=== PATIENT | male | born 1960 | race Caucasian/White ===

== ENCOUNTER → 2017-01-15 | Outpatient (CLI) | payer BC ==
[~2017-01-15] VITALS: Ht 180.3 cm; Wt 80.3 kg
[~2017-01-15] MED LIST: LR 1,000 ML IV SCH; no medications
--- NOTE | 2017-01-15 08:13 | ROOR ---
Patient Name: Max Salas Procedure Date: 01/15/2017 7:25 AM Date of : 1960 Age: 56 Room: [facility] Gender: Male Note Status: Finalized Procedure: Colonoscopy Indications: Screening for colorectal malignant neoplasm, This is the patient's first colonoscopy Providers: Rick Mcelroy MD Referring MD: Drake Kaur MD Requesting Provider: Medicines: Monitored Anesthesia Care Complications: No immediate complications. Procedure: Pre-Anesthesia Assessment: - Prior to the procedure, a History and Physical was performed, and patient medications and allergies were reviewed. The patient is competent. The risks and benefits of the procedure and the sedation options and risks were discussed with the patient. All questions were answered and informed consent was obtained. Patient identification and proposed procedure were verified by the physician, the nurse and the anesthesiologist in the procedure room. Mental Status Examination: alert and oriented. Airway Examination: normal oropharyngeal airway and neck mobility. CV Examination: regular rate and rhythm. Prophylactic Antibiotics: The patient does not require prophylactic antibiotics. Prior Anticoagulants: The patient has taken no previous anticoagulant or antiplatelet agents. ASA Grade Assessment: I - A normal, healthy patient. After reviewing the risks and benefits, the patient was deemed in satisfactory condition to undergo the procedure. The anesthesia plan was to use monitored anesthesia care (MAC). Immediately prior to administration of medications, the patient was re-assessed for adequacy to receive sedatives. The heart rate, respiratory rate, oxygen saturations, blood pressure, adequacy of pulmonary ventilation, and response to care were monitored throughout the procedure. The physical status of the patient was re-assessed after the procedure. The Colonoscope was introduced through the anus and advanced to the cecum, identified by appendiceal orifice and ileocecal valve. The colonoscopy was performed without difficulty. The patient tolerated the procedure well. The quality of the bowel preparation was excellent. Findings: The perianal and digital rectal examinations were normal. Two sessile polyps were found at 70 cm proximal to the anus. The polyps were 4 to 6 mm in size. These polyps were removed with a hot snare. Resection and retrieval were complete. A few medium-mouthed diverticula were found in the sigmoid colon. There was some thickening and mild narrowing noted in the sigmoid colon in the area of his diverticulosis. A 8 mm polyp was found in the rectum. The polyp was semi-pedunculated. The polyp was removed with a hot snare. Resection and retrieval were complete. Impression: - Two 4 to 6 mm polyps at 70 cm proximal to the anus, removed with a hot snare. Resected and retrieved. - Diverticulosis in the sigmoid colon. - One 8 mm polyp in the rectum, removed with a hot snare. Resected and retrieved. Recommendation: - Resume previous diet. - Await pathology results. - Telephone endoscopist for pathology results in 10 days. Rick Mcelroy MD 01/15/2017 8:12:01 AM Number of Addenda: 0 Note Initiated On: 01/15/2017 7:25 AM Estimated Blood Loss: Estimated blood loss: none.
[2017-01-15 08:35] VITALS: BP 152/94
== END | disposition home or self-care (01) ==
LOC: M OPP 06:41
PROVIDERS: ATTEND Surgery
DX: Z12.11 Encounter for screening for malignant neoplasm of colon (principal); D12.4 Benign neoplasm of descending colon; K57.30 Diverticulosis of large intestine without perforation or abscess without bleeding; D12.8 Benign neoplasm of rectum; E78.00 Pure hypercholesterolemia, unspecified; Z87.891 Personal history of nicotine dependence

== ENCOUNTER 2020-06-24 05:26 | Emergency (ER) | payer BC ==
[~2020-06-24] VITALS: Ht 180.3 cm; Wt 81.8 kg
[~2020-06-24 05:26] MED LIST changes: -LR 1,000 ML IV SCH
[2020-06-24] MEDS ORDERED: ONDANSETRON 4MG/2ML VIAL IV ONE (06:15)
[2020-06-24 06:35] LABS: BASO # 0.1 10^3/uL (0.0-0.2); BASO % 0.5 % (0.0-1.0); EOS % 0.3 % (0.0-3.0); HEMATOCRIT 42.4 % (42.0-52.0); HEMOGLOBIN 14.4 g/dl (13.5-17.5); LYMPH # 1.4 10^3/uL (1.5-5.0); MEAN CORPUSCULAR VOLUME 85.5 fl (80.0-96.0); MONO # 0.7 10^3/uL (0.0-0.8); MONO % 6.5 % (0.0-5.0); NEUTROPHILS # 8.2 10^3/uL (1.5-8.5); NEUTROPHILS % 79.2 % (36.0-66.0); PLATELET COUNT, AUTOMATED 253 10^3/uL (150-450); RED BLOOD COUNT 4.96 10^6/uL (4.30-6.10); WHITE BLOOD COUNT 10.4 10^3/uL (4.0-10.0)
[2020-06-24] MEDS: MORPHINE 4 MG/ML 1ML VIAL/SYRINGE (J2270) IV PRN ×2 (06:42→08:33)
[2020-06-24] MEDS ORDERED: ISOVUE-370 76% 100ML VIAL As Ordered ONE (06:42)
[2020-06-24 07:11] LABS: ALBUMIN 3.4 GM/DL (3.2-5.2); BILIRUBIN,DIRECT 0.2 MG/DL (0.0-0.2); BILIRUBIN,TOTAL 0.5 MG/DL (0.2-1.0); TOTAL PROTEIN 7.2 GM/DL (6.4-8.2)
--- NOTE | 2020-06-24 07:35 | REPVR ---
PROCEDURE INFORMATION: Exam: CT Abdomen And Pelvis With Contrast Exam date and time: 06/24/2020 6:10 AM Age: 60 years old Clinical indication: Abdominal pain; Localized; Lower; Additional info: Generalized abd pain, HX of diverticulitis TECHNIQUE: Imaging protocol: Computed tomography of the abdomen and pelvis with intravenous contrast. Radiation optimization: All CT scans at this facility use at least one of these dose optimization techniques: automated exposure control; mA and/or kV adjustment per patient size (includes targeted exams where dose is matched to clinical indication); or iterative reconstruction. Contrast material: ISO; Contrast volume: 100 ml; Contrast route: INTRAVENOUS (IV); COMPARISON: CT ABD PELVIS WITH CONTRAST 10/26/2016 7:50 AM FINDINGS: Liver: Normal. No mass. Gallbladder and bile ducts: Normal. No calcified stones. No ductal dilation. Pancreas: Normal. No ductal dilation. Spleen: Normal. No splenomegaly. Adrenals: Normal. No mass. Kidneys and ureters: Cyst left kidney measures 1.5 cm. Stomach and bowel: Fluid-filled small bowel left upper quadrant. Distal colonic diverticulosis. Long segment of abnormal wall thickening and Jud luminal stranding involving sigmoid colon and rectosigmoid junction. There is prominent low pelvic soft tissue infectious or inflammatory stranding and multi locular enhancing fluid collections suspicious for abscess overall measuring approximately 7.4 by 4.8 by 2.0 cm. Appendix: No evidence of appendicitis. Intraperitoneal space: Unremarkable. No free air. No significant fluid collection. Vasculature: Calcified abdominal aorta. Lymph nodes: Unremarkable. No enlarged lymph nodes. Bladder: Unremarkable as visualized. Reproductive: Unremarkable as visualized. Bones/joints: Unremarkable. No acute fracture. Soft tissues: See "Stomach and bowel" finding. IMPRESSION: 1. Significant wall thickening long segment of sigmoid colon and rectosigmoid junction with prominent low pelvic stranding and pelvic abscess. The differential could include complicated diverticulitis. Other considerations including infectious or inflammatory colitis. 2. Colonic diverticulosis. 3. Reactive small bowel ileus. 4. Left renal cyst.No further workup recommended. Electronically signed by: Ashwini Osei On 06/24/2020 07:36:10 AM
[2020-06-24] MEDS ORDERED: PIPERACILLIN/TAZOBACTAM SOD 4.5 GM in D5W MINI-BAG PLUS 50 ML IV ONE (08:00)
[2020-06-24] MEDS ORDERED: NS 1,000 ML IV SCH (08:15)
[2020-06-24] MEDS ORDERED: HYDROMORPHONE HCL 0.5 MG/ 0.5 ML SYRINGE (J1170 PER 1) IV PRN (09:00)
[2020-06-24] MEDS ORDERED: FLAG500T PO (10:06)
[2020-06-24] MEDS ORDERED: CIPR-249 PO (10:06)
[2020-06-24] MEDS ORDERED: PERC5TAB12 PO (10:07)
[2020-06-24 10:21] VITALS: BP 120/68
--- NOTE | 2020-07-06 14:28 | CR ---
DATE: 06/24/2020 REASON FOR CONSULTATION: Diverticulitis with possible pelvic abscess. HISTORY OF PRESENT ILLNESS: The patient is a pleasant 60-year-old man who presented to the Emergency Department in the bull chain operator of the 24 of June complaining of severe abdominal pain. The patient has a history of an episode of sigmoid diverticulitis in late 2015. He had a follow-up colonoscopy at that point, that confirmed diverticulosis. The colonoscopy confirmed diverticulosis in the sigmoid colon and he was also found to have three small polyps, that were resected and proved to be adenomas. Patient reports that one week ago he noted the onset of some discomfort in his left lower quadrant. He described it as a mild achy or cramping sensation. He adjusted his diet to primarily liquids and avoided any fibrous foods. He felt as if he was getting generally better with just the dietary modification. He denied any fevers or chills. He has had no rectal bleeding. He denies any diarrhea or constipation. On the evening of the , he noted some slightly increased discomfort across the lower abdomen. In the bull chain operator at about 5:00 in the morning, he noted severe pain in his pelvic area and lower abdomen. He described discomfort more diffusely in the abdomen. He felt an urge to defecate, but did not have a bowel movement. He presented to the Emergency Department, where he underwent evaluation with some laboratory studies and he had a CT scan of the abdomen and pelvis. This showed inflammatory changes in the sigmoid colon as well as several small fluid collections in the pelvis. I am now consulted regarding the patient to determine if either drainage or hospitalization are needed. MEDICATIONS: Patient is currently on no prescription medications. ALLERGIES: He denies any known drug allergies. MEDICAL HISTORY: Significant only for his past diverticulitis and cervical disc disease. SURGICAL HISTORY: He has had surgery for cervical spine disease approximately 15 years ago and has done well. He has had no abdominal surgery at all. SOCIAL HISTORY: He is a light smoker of tobacco products. He denies any excess alcohol intake. REVIEW OF SYSTEMS: Patient denies any history of seizure or stroke. He has had no chest pain, palpitations or cardiac issues. He denies any shortness of breath, cough or wheezing. His GI review is noted in the history of the present illness. He denies any dysuria or hematuria. He denies any bone or joint problems. He has had no history of DVT or pulmonary embolus. PHYSICAL EXAMINATION: GENERAL: Patient is sitting up on the side of the stretcher at the time of my visit. He is alert and oriented. He appears fairly comfortable at present, though still complains of some crampy pain. He feels better currently sitting up. VITALS: Temperature 97.3 at the time of presentation, pulse has been in the 80s generally with a normal room air oxygen saturation, and blood pressure upon presentation 129/73. SKIN: Warm and dry. HEENT: Sclerae anicteric. Mucous membranes appear moist. NECK: Supple without mass or bruit. HEART: Regular rate and rhythm. LUNGS: Clear bilaterally to auscultation. ABDOMEN: Perhaps mildly protuberant. He has bowel sounds present. There is no evident hernia. There is no tympany to percussion. There is no significant tenderness to percussion throughout the abdomen. On palpation, the abdomen is soft throughout. He has no significant tenderness to palpation, although perhaps in the suprapubic area and low left lower quadrant there is some mild tenderness to palpation. EXTREMITIES: Benign. LABORATORY STUDIES: Include CBC that showed white count 10, hemoglobin 14, hematocrit 42, platelet count 253,000. Differential count showed 79% neutrophils, 13% lymphocytes and 6% monocytes. Chemistry profile showed normal electrolytes. Liver function tests entirely normal with lipase 127. Urinalysis showed an elevated specific gravity at greater than 1.060 with 1+ protein, 1+ blood and the microscopic showed 12 red cells and 1 white cell per high power field. He had a blood culture obtained, which is of course pending. IMAGING DATA: He had a CT scan of the abdomen and pelvis. This was read by the radiologist as showing a long segment of abnormal wall thickening and periluminal stranding involving the sigmoid colon and rectosigmoid. There was some prominent low pelvic soft tissue infectious or inflammatory stranding and multi-locular enhancing fluid collections. I reviewed the imaging personally in detail and compared this to a CT scan he had from October 2016. He certainly has a picture consistent with diverticulitis involving his sigmoid colon. The length of colon involved now is somewhat greater than in 2016. He does have some small fluid collections low in the pelvis. I do not believe that these are all confluent. There is no air identified in any of these pockets of fluid. He has no free air otherwise in the abdomen and no other fluid collections outside the pelvis. IMPRESSION: Sigmoid diverticulitis with small pelvic fluid collections. RECOMMENDATIONS: At this point, the patient clearly has diverticulitis. The small fluid collections do not appear to require drainage at this time. In fact, I think it would be very difficult to achieve percutaneous drain placement for these. These are all quite low in the pelvis and probably a posterior approach would be needed and I think the likelihood of successful drainage would be fairly low and at a great risk of discomfort. I think he may be better served by admission to the hospital for intravenous antibiotics given the degree of discomfort he had that lead to his coming to the Emergency Department. He has required some Dilaudid in the Emergency Department for pain control, although he does say he feels much better now. We discussed the option of coming in for I.V. antibiotics versus discharge home. He reports that he would be very willing to continue the antibiotics on an oral basis at home. He seems responsible and I believe that there is a very low risk for problems if he is discharged on oral antibiotics rather than coming into the hospital. After some discussion, we agreed that he could be discharged home on oral antibiotics and oral analgesics as necessary. I advised him that he should feel significantly better within the next 48 hours or so. If he gets worse or does not see improvement within 48 hours, he should follow-up for reevaluation. If his symptoms do not remit fairly readily with antibiotics, then a repeat CT scan may well be required to reassess his pelvic fluid collections. My suspicion is that these are just some inflammatory fluid and not true abscesses and that these will resolve with just antibiotic therapy. I advised him that I would be power plant operations manager through this coming weekend and he could return to the Emergency Department as needed and I can be available to see him. I spoke with Dr. Funk of the Emergency Department and she will provide the patient with antibiotics and oral analgesics and discharge him. WILTON
== END 2020-06-24 10:25 | disposition home or self-care (01) ==
LOC: M ED 05:26
DX: K57.92 Diverticulitis of intestine, part unspecified, without perforation or abscess without bleeding (principal)
CPT/HCPCS: 74177; 80047; 80076; 81001; 83605; 83690; 85025; 87040; 93041; 96365; 96375; 96376; 99284; J1170; J2270; J2405; J2543; Q9967

== ENCOUNTER → 2020-07-05 | Outpatient (CLI) | payer BC ==
[~2020-07-05] MED LIST changes: +CIPR-249 PO; +FLAG500T PO; +GASTROGRAFIN SOLUTION 30ML (Q9963) As Ordered ONE; +ISOVUE-370 76% 100ML VIAL As Ordered ONE; +PERC5TAB12 PO
--- NOTE | 2020-08-01 11:57 | REP ---
PELVIC CT WITH CONTRAST CLINICAL: Follow up diverticulitis. TECHNIQUE: Axial contrast enhanced images of the pelvis using oral (per protocol) and 100 cc [id number] intravenous contrast material. COMPARISON: 06/24/2020 FINDINGS: Diverticulitis involving the mid to distal sigmoid colon extending to the level of the rectosigmoid with significant surrounding inflammatory stranding, very subtle small pockets of possible extraluminal gas, and irregular enhancing fluid collections suggesting phlegmonous changes and forming abscess are again noted and relatively similar to prior examination. Findings do not suggest significant improvement. Remainder of the visualized small and large is grossly unremarkable. The bladder and prostate gland are relatively unremarkable, although phlegmonous changes from the diverticulitis abut the bladder and superior margin of the prostate gland making secondary inflammatory changes to these structures possible. Visualized abdominal aorta and vasculature demonstrate atherosclerotic changes. Surrounding musculoskeletal structures demonstrate age-related changes without acute osseous abnormality. IMPRESSION: Continued marked sigmoid diverticulitis with surrounding inflammatory changes and phlegmonous changes which are partly inseparable from the bladder and prostate gland in the deep pelvis. Small foci of continued extraluminal gas cannot be excluded. These findings are relatively similar to prior examination and without evidence for improvement. MTDD
== END ==
LOC: M RAD 10:51
PROVIDERS: ATTEND Surgery
DX: K57.20 Diverticulitis of large intestine with perforation and abscess without bleeding (principal)
CPT/HCPCS: 72193; Q9963; Q9967

== ENCOUNTER → 2020-07-07 | Outpatient (REF) | payer BC ==
[~2020-07-07] MED LIST changes: -GASTROGRAFIN SOLUTION 30ML (Q9963) As Ordered ONE; -ISOVUE-370 76% 100ML VIAL As Ordered ONE
[2020-07-07 05:24] LABS: BASO # 0.1 10^3/uL (0.0-0.2); BASO % 1.2 % (0.0-1.0); EOS # 0.1 10^3/uL (0.0-0.5); EOS % 1.5 % (0.0-3.0); HEMATOCRIT 42.1 % (42.0-52.0); HEMOGLOBIN 13.6 g/dl (13.5-17.5); LYMPH % 22.8 % (24.0-44.0); MEAN CORPUSCULAR HEMOGLOBIN 28.2 pg (27.0-33.0); MEAN CORPUSCULAR HGB CONC 32.3 g/dl (32.0-36.5); MEAN CORPUSCULAR VOLUME 87.3 fl (80.0-96.0); MONO # 0.5 10^3/uL (0.0-0.8); MONO % 6.1 % (0.0-5.0); NEUTROPHILS % 67.8 % (36.0-66.0); PLATELET COUNT, AUTOMATED 394 10^3/uL (150-450); RED BLOOD COUNT 4.82 10^6/uL (4.30-6.10); WHITE BLOOD COUNT 8.8 10^3/uL (4.0-10.0)
== END ==
LOC: M LAB 05:18
PROVIDERS: ATTEND Surgery
DX: K57.20 Diverticulitis of large intestine with perforation and abscess without bleeding (principal)

== ENCOUNTER → 2020-12-14 | Outpatient (REF) | payer BC | LOC: M LAB REF 17:11 | PROVIDERS: ATTEND Dermatology | DX: D18.09 Hemangioma of other sites (principal) ==

== ENCOUNTER → 2021-12-01 | Outpatient (REF) | LOC: M LABSMTC 09:15 | PROVIDERS: ATTEND Family Medicine | DX: Z20.822 Contact with and (suspected) exposure to COVID-19 (principal) ==

== ENCOUNTER → 2024-01-28 | Outpatient (CLI) | payer BC | LOC: M WUC 08:37 | PROVIDERS: ATTEND Physician Assistant | DX: M16.11 Unilateral primary osteoarthritis, right hip (principal); M51.36 Other intervertebral disc degeneration, lumbar region ==

== ENCOUNTER 2024-02-23 09:39 | Emergency (ER) | payer BC ==
[~2024-02-23] VITALS: Ht 180.3 cm; Wt 77.2 kg
[2024-02-23] MEDS: IPRATROPIUM 0.5MG/ALBUTEROL 2.5MG INH SOL UD 3ML (DUONEB) NEB ONE (10:05)
[2024-02-23 10:22] LABS: VENOUS BASE EXCESS -1.8 (-2.0-2.0); VENOUS HCO3 20.4 MMOL/L (23.0-27.0); VENOUS PARTIAL PRESSURE O2 66.3 mmHg (30.0-50.0); VENOUS PH 7.465 UNITS (7.330-7.430); VENOUS STANDARD HCO3 22.9 MMOL/L; VENOUS TOTAL CO2 21.3 MMOL/L (24.0-28.0)
[2024-02-23 10:29] LABS: BASO % 0.2 % (0.0-1.0); HEMATOCRIT 45.2 % (42.0-52.0); HEMOGLOBIN 15.8 g/dl (13.5-17.5); LYMPH # 0.9 10^3/uL (1.5-5.0); LYMPH % 5.9 % (24.0-44.0); MEAN CORPUSCULAR HEMOGLOBIN 30.4 pg (27.0-33.0); MEAN CORPUSCULAR VOLUME 86.9 fl (80.0-96.0); MONO # 1.4 10^3/uL (0.0-0.8); MONO % 9.6 % (2.0-8.0); NEUTROPHILS # 12.3 10^3/uL (1.5-8.5); NEUTROPHILS % 83.9 % (36.0-66.0); PLATELET COUNT, AUTOMATED 210 10^3/uL (150-450); WHITE BLOOD COUNT 14.6 10^3/uL (4.0-10.0)
[2024-02-23] MEDS ORDERED: VENTAER INH (10:57)
[2024-02-23] MEDS ORDERED: DOXY100C82 PO (10:57)
[2024-02-23] MEDS ORDERED: PRED20TA PO (10:57)
[2024-02-23] MEDS ORDERED: CEFD300C PO (10:57)
[2024-02-23 11:00] LABS: ALBUMIN 3.7 G/DL (3.2-5.2); ALKALINE PHOSPHATASE 83 U/L (46-116); ALT/SGPT 29 U/L (7.0-40); AST/SGOT 23 U/L (<34); BILIRUBIN,DIRECT 0.5 MG/DL (<0.4); BILIRUBIN,TOTAL 1.2 MG/DL (0.3-1.2); BLOOD UREA NITROGEN 19 MG/DL (9-23); CALCIUM LEVEL 9.4 MG/DL (8.3-10.6); CARBON DIOXIDE LEVEL 21 MMOL/L (20-31); CHLORIDE LEVEL 106 MMOL/L (98-107); CREATININE FOR GFR 0.82 MG/DL (0.70-1.30); GLOMERULAR FILTRATION RATE > 60.0 (>49); GLUCOSE, FASTING 173 MG/DL (74-106); POTASSIUM SERUM 3.6 MMOL/L (3.5-5.1); SODIUM LEVEL 137 MMOL/L (136-145); TOTAL PROTEIN 7.3 G/DL (5.7-8.2)
[2024-02-23 11:02] LABS: THYROID STIMULATING HORMONE 1.597 uIU/ML (0.55-4.78)
[2024-02-23 11:38] VITALS: TEMP 98.3
[2024-02-23 11:57] VITALS: O2SAT 95
[2024-02-23 12:00] VITALS: BP 177/89
== END 2024-02-23 12:03 | disposition home or self-care (01) ==
LOC: M ED 09:39
DX: J18.9 Pneumonia, unspecified organism (principal); E78.5 Hyperlipidemia, unspecified; F17.200 Nicotine dependence, unspecified, uncomplicated

== ENCOUNTER 2024-03-01 09:01 | Inpatient (IN) | payer BC ==
[~2024-03-01] VITALS: Ht 180.3 cm; Wt 77.6 kg
[~2024-03-01 09:01] MED LIST changes: +CEFD300C PO; +DOXY100C82 PO; +PRED20TA PO; +VENTAER INH
[2024-03-01 09:35] LABS: BASO % 0.2 % (0.0-1.0); EOS % 0.1 % (0.0-3.0); HEMATOCRIT 47.9 % (42.0-52.0); HEMOGLOBIN 16.7 g/dl (13.5-17.5); LYMPH # 1.2 10^3/uL (1.5-5.0); LYMPH % 5.1 % (24.0-44.0); MEAN CORPUSCULAR HEMOGLOBIN 30.1 pg (27.0-33.0); MEAN CORPUSCULAR HGB CONC 34.9 g/dl (32.0-36.5); MEAN CORPUSCULAR VOLUME 86.5 fl (80.0-96.0); MONO # 0.6 10^3/uL (0.0-0.8); MONO % 2.4 % (2.0-8.0); NEUTROPHILS # 22.2 10^3/uL (1.5-8.5); NEUTROPHILS % 91.3 % (36.0-66.0); PLATELET COUNT, AUTOMATED 287 10^3/uL (150-450); RED BLOOD COUNT 5.54 10^6/uL (4.30-6.10); WHITE BLOOD COUNT 24.3 10^3/uL (4.0-10.0)
[2024-03-01] MEDS: NS 1,000 ML IV ONE (09:52)
[2024-03-01 10:03] LABS: LIPASE 32 U/L (12-53)
[2024-03-01 10:05] LABS: ALBUMIN 3.7 G/DL (3.2-5.2); ALKALINE PHOSPHATASE 78 U/L (46-116); ALT/SGPT 50 U/L (7.0-40); AST/SGOT 20 U/L (<34); BILIRUBIN,DIRECT 0.5 MG/DL (<0.4); BILIRUBIN,TOTAL 1.1 MG/DL (0.3-1.2); BLOOD UREA NITROGEN 15 MG/DL (9-23); CARBON DIOXIDE LEVEL 26 MMOL/L (20-31); CHLORIDE LEVEL 103 MMOL/L (98-107); CREATININE FOR GFR 0.93 MG/DL (0.70-1.30); GLOMERULAR FILTRATION RATE > 60.0 (>49); GLUCOSE, FASTING 118 MG/DL (74-106); SODIUM LEVEL 138 MMOL/L (136-145)
[2024-03-01] MEDS ORDERED: ISOVUE-370 76% 100ML VIAL As Ordered ONE (10:11)
[2024-03-01] MEDS: KETOROLAC 30 MG/ML 1ML VIAL IV ONE (10:26)
[2024-03-01] MEDS: CIPROFLOXACIN 400 MG in IV 1 EA IV ONE (11:43)
[2024-03-01] MEDS ORDERED: DOXY-443 PO (12:17)
[2024-03-01] MEDS ORDERED: IBUP80TA PO (12:17)
[2024-03-01] MEDS ORDERED: VENTAER INH (12:17)
[2024-03-01] MEDS ORDERED: PRED20TA PO (12:17)
[2024-03-01] MEDS ORDERED: CEFD1CAP9 PO (12:17)
[2024-03-01] MEDS ORDERED: HOME MED LIST COMPLETE! XX SCH (12:20)
[2024-03-01] MEDS: metroNIDAZOLE 500 MG in IV 1 EA IV ONE (13:00)
[2024-03-01] MEDS: NS 1,000 ML IV SCH (13:42)
[2024-03-01] MEDS: ACETAMINOPHEN *IV* 1,000 MG in IV 1 EA IV ONE (13:42)
[2024-03-01 15:39] VITALS: BP 147/91; TEMP 97.9; O2SAT 98
[2024-03-01] MEDS: KETOROLAC 30 MG/ML 1ML VIAL IV PRN (18:56)
[2024-03-01 20:00] VITALS: BP 143/92; TEMP 98.1; O2SAT 98
[2024-03-01] MEDS: ENOXAPARIN 40MG/0.4ML SYRINGE (J1650 PER 10MG) SC SCH (21:26)
[2024-03-01] MEDS: metroNIDAZOLE 500 MG in IV 1 EA IV SCH (21:26)
[2024-03-02] MEDS: CIPROFLOXACIN 400 MG in IV 1 EA IV SCH (00:13)
[2024-03-02 06:00] VITALS: BP 137/89; TEMP 98.1; O2SAT 94
[2024-03-02 06:57] LABS: BASO % 0.2 % (0.0-1.0); EOS % 0.2 % (0.0-3.0); HEMATOCRIT 39.2 % (42.0-52.0); LYMPH # 1.3 10^3/uL (1.5-5.0); LYMPH % 7.1 % (24.0-44.0); MEAN CORPUSCULAR HEMOGLOBIN 30.4 pg (27.0-33.0); MEAN CORPUSCULAR HGB CONC 34.9 g/dl (32.0-36.5); MEAN CORPUSCULAR VOLUME 87.1 fl (80.0-96.0); MONO # 0.6 10^3/uL (0.0-0.8); MONO % 3.1 % (2.0-8.0); NEUTROPHILS # 15.6 10^3/uL (1.5-8.5); NEUTROPHILS % 88.7 % (36.0-66.0); PLATELET COUNT, AUTOMATED 204 10^3/uL (150-450); WHITE BLOOD COUNT 17.6 10^3/uL (4.0-10.0)
[2024-03-02 07:00] LABS: HEMOGLOBIN 13.7 g/dl (13.5-17.5)
[2024-03-02 07:32] LABS: BLOOD UREA NITROGEN 13 MG/DL (9-23); CALCIUM LEVEL 7.8 MG/DL (8.3-10.6); CARBON DIOXIDE LEVEL 21 MMOL/L (20-31); CHLORIDE LEVEL 106 MMOL/L (98-107); CREATININE FOR GFR 0.78 MG/DL (0.70-1.30); GLOMERULAR FILTRATION RATE > 60.0 (>49); GLUCOSE, FASTING 93 MG/DL (74-106); POTASSIUM SERUM 3.7 MMOL/L (3.5-5.1); SODIUM LEVEL 136 MMOL/L (136-145)
[2024-03-02 14:00] VITALS: BP 138/72; TEMP 98.1; O2SAT 96
[2024-03-02 22:00] VITALS: BP 147/81; TEMP 97.6; O2SAT 98
[2024-03-03 07:01] LABS: BASO % 0.2 % (0.0-1.0); EOS # 0.1 10^3/uL (0.0-0.5); EOS % 0.6 % (0.0-3.0); HEMATOCRIT 39.3 % (42.0-52.0); HEMOGLOBIN 13.7 g/dl (13.5-17.5); LYMPH # 1.2 10^3/uL (1.5-5.0); LYMPH % 7.4 % (24.0-44.0); MEAN CORPUSCULAR HEMOGLOBIN 29.9 pg (27.0-33.0); MEAN CORPUSCULAR HGB CONC 34.9 g/dl (32.0-36.5); MEAN CORPUSCULAR VOLUME 85.8 fl (80.0-96.0); MONO # 0.7 10^3/uL (0.0-0.8); MONO % 4.3 % (2.0-8.0); NEUTROPHILS # 13.6 10^3/uL (1.5-8.5); NEUTROPHILS % 86.7 % (36.0-66.0); PLATELET COUNT, AUTOMATED 184 10^3/uL (150-450); RED BLOOD COUNT 4.58 10^6/uL (4.30-6.10); WHITE BLOOD COUNT 15.6 10^3/uL (4.0-10.0)
[2024-03-03] MEDS ORDERED: ALBUTEROL 90 MCG/ACT 8GM HFA INHALER INH PRN (07:25)
[2024-03-03 07:27] LABS: BLOOD UREA NITROGEN 14 MG/DL (9-23); CALCIUM LEVEL 7.9 MG/DL (8.3-10.6); CARBON DIOXIDE LEVEL 22 MMOL/L (20-31); CHLORIDE LEVEL 107 MMOL/L (98-107); CREATININE FOR GFR 0.78 MG/DL (0.70-1.30); GLOMERULAR FILTRATION RATE > 60.0 (>49); GLUCOSE, FASTING 111 MG/DL (74-106); POTASSIUM SERUM 3.5 MMOL/L (3.5-5.1); SODIUM LEVEL 139 MMOL/L (136-145)
[2024-03-03] MEDS ORDERED: CIPR500T39 PO (09:43)
[2024-03-03] MEDS ORDERED: METR-265 PO (09:43)
[2024-03-03] MEDS ORDERED: ONDA4TAB6 PO (10:43)
[2024-03-03] MEDS ORDERED: RISATAB3 PO (10:43)
[2024-03-03 14:00] VITALS: BP 143/86; TEMP 98.2; O2SAT 96
== END 2024-03-03 15:26 | disposition home or self-care (01) | DRG 720 ==
LOC: M ED 09:01 → M ED INP 14:01 → M MSPAV 15:35
PROVIDERS: ADMIT Internal Medicine Nephrology; ATTEND Internal Medicine
DX: A41.9 Sepsis, unspecified organism (principal); K57.20 Diverticulitis of large intestine with perforation and abscess without bleeding; E83.51 Hypocalcemia; J44.9 Chronic obstructive pulmonary disease, unspecified; F17.200 Nicotine dependence, unspecified, uncomplicated; K44.9 Diaphragmatic hernia without obstruction or gangrene; Z79.2 Long term (current) use of antibiotics; Z79.52 Long term (current) use of systemic steroids; Z79.899 Other long term (current) drug therapy

== ENCOUNTER 2024-03-09 09:46 | Inpatient (IN) | payer BC ==
[~2024-03-09] VITALS: Ht 177.8 cm; Wt 74.6 kg
[~2024-03-09 09:46] MED LIST changes: +CEFD1CAP9 PO; +CIPR500T39 PO; +DOXY-323 PO; +IBUP80TA PO; +METR-265 PO; +ONDA4TAB6 PO; +RISATAB3 PO
[2024-03-09] MEDS ORDERED: IBUP200T46 PO (10:11)
[2024-03-09 13:08] LABS: BASO # 0.1 10^3/uL (0.0-0.2); BASO % 0.8 % (0.0-1.0); EOS % 0.3 % (0.0-3.0); HEMATOCRIT 43.4 % (42.0-52.0); HEMOGLOBIN 14.6 g/dl (13.5-17.5); LYMPH # 1.6 10^3/uL (1.5-5.0); LYMPH % 13.3 % (24.0-44.0); MEAN CORPUSCULAR HEMOGLOBIN 29.6 pg (27.0-33.0); MEAN CORPUSCULAR HGB CONC 33.6 g/dl (32.0-36.5); MEAN CORPUSCULAR VOLUME 87.9 fl (80.0-96.0); MONO # 0.8 10^3/uL (0.0-0.8); MONO % 6.6 % (2.0-8.0); NEUTROPHILS # 9.4 10^3/uL (1.5-8.5); NEUTROPHILS % 78.6 % (36.0-66.0); PLATELET COUNT, AUTOMATED 344 10^3/uL (150-450); RED BLOOD COUNT 4.94 10^6/uL (4.30-6.10)
[2024-03-09] MEDS: MORPHINE 4 MG/ML 1ML VIAL IV ONE (13:10)
[2024-03-09] MEDS: METOCLOPRAMIDE INJ 10MG/2ML VIAL IV ONE (13:10)
[2024-03-09] MEDS ORDERED: ISOVUE-370 76% 100ML VIAL As Ordered ONE (13:18)
[2024-03-09 13:40] LABS: ALBUMIN 2.8 G/DL (3.2-5.2); BILIRUBIN,DIRECT 0.2 MG/DL (<0.4); BILIRUBIN,TOTAL 0.4 MG/DL (0.3-1.2); TOTAL PROTEIN 7.1 G/DL (5.7-8.2)
[2024-03-09] MEDS: MORPHINE 2 MG/ML 1ML VIAL IV ONE (14:37)
[2024-03-09] MEDS: LORazepam 2 MG/ML 1ML VIAL IV STA (14:49)
[2024-03-09] MEDS ORDERED: KETOROLAC 30 MG/ML 1ML VIAL IV ONE (15:05)
[2024-03-09] MEDS ORDERED: CIPROFLOXACIN 400 MG in IV 1 EA IV ONE (15:25)
[2024-03-09] MEDS ORDERED: metroNIDAZOLE 500 MG in IV 1 EA IV ONE (15:25)
[2024-03-09] MEDS ORDERED: ONDANSETRON 4MG 2ML VIAL IV PRN (15:50)
[2024-03-09] MEDS ORDERED: ACETAMINOPHEN TAB 650MG DOSE (2X325MG) PO PRN (15:50)
[2024-03-09] MEDS ORDERED: NALOXONE INJ 0.4MG/1ML VIAL IV PRN (16:00)
[2024-03-09] MEDS ORDERED: PERCOCET 5MG/325MG TAB PO PRN ×2 (16:00)
[2024-03-09] MEDS ORDERED: MIRALAX *UNIT DOSE* 17GM PACKET PO PRN (16:00)
[2024-03-09] MEDS ORDERED: SENOKOT S TAB PO PRN (16:00)
[2024-03-09] MEDS ORDERED: BISACODYL 5MG TAB PO PRN (16:00)
[2024-03-09] MEDS ORDERED: MOM 30ML SUSPENSION UDC PO PRN (16:00)
[2024-03-09] MEDS ORDERED: IPRATROPIUM 0.5MG/ALBUTEROL 2.5MG INH SOL UD 3ML (DUONEB) NEB PRN (16:05)
[2024-03-09] MEDS: NICOTINE 21MG/24HR 1 EA TRANSDERMAL TD ONE (16:05)
[2024-03-09 16:17] LABS: INR 1.29; PROTHROMBIN TIME 15.7 SECONDS (12.5-14.5)
[2024-03-09 16:18] LABS: PARTIAL THROMBOPLASTIN TIME 36.8 SECONDS (24.8-34.2)
[2024-03-09 16:43] LABS: ERYTHROCYTE SEDIMENTATION RATE 95 mm/hr (0-20)
[2024-03-09] MEDS ORDERED: ONDA4TAB6 PO (16:44)
[2024-03-09] MEDS ORDERED: CIPR-249 PO (16:44)
[2024-03-09] MEDS ORDERED: METR-265 PO (16:44)
[2024-03-09] MEDS ORDERED: IBUP200C25 PO (16:44)
[2024-03-09] MEDS ORDERED: PROBCAP14 PO (16:44)
[2024-03-09] MEDS ORDERED: HOME MED LIST COMPLETE! XX SCH (16:45)
[2024-03-09 17:09] LABS: C REACTIVE PROTEIN QUANTITATIV 4.7 MG/DL (<1.0)
[2024-03-09] MEDS: PIPERACILLIN/TAZOBACTAM SOD 4.5 GM in D5W MINI-BAG PLUS 50 ML IV SCH (17:18)
[2024-03-09 17:22] LABS: PROCALCITONIN 0.08 ng/ml
[2024-03-09] MEDS: LR 1,000 ML IV ONE (17:23)
[2024-03-09 17:30] VITALS: BP 151/93; TEMP 98.2; O2SAT 98
[2024-03-09] MEDS: NS 1,000 ML IV SCH (18:00)
[2024-03-09] MEDS: HYDROMORPHONE HCL 0.5 MG/ 0.5 ML SYRINGE IV ONE (18:00)
[2024-03-09] MEDS: KETOROLAC 30 MG/ML 1ML VIAL IV SCH (18:00)
[2024-03-09 19:44] VITALS: BP 138/72; TEMP 98.1; O2SAT 96
[2024-03-10 05:00] VITALS: BP 132/74; TEMP 97.7; O2SAT 96
[2024-03-10] MEDS: LORazepam 0.5 MG TAB PO ONE (05:26)
[2024-03-10 06:00] LABS: BASO # 0.1 10^3/uL (0.0-0.2); BASO % 0.8 % (0.0-1.0); EOS # 0.1 10^3/uL (0.0-0.5); EOS % 0.8 % (0.0-3.0); HEMATOCRIT 41.2 % (42.0-52.0); HEMOGLOBIN 13.8 g/dl (13.5-17.5); LYMPH # 1.6 10^3/uL (1.5-5.0); LYMPH % 17.2 % (24.0-44.0); MEAN CORPUSCULAR HEMOGLOBIN 29.2 pg (27.0-33.0); MEAN CORPUSCULAR HGB CONC 33.5 g/dl (32.0-36.5); MEAN CORPUSCULAR VOLUME 87.1 fl (80.0-96.0); MONO # 0.6 10^3/uL (0.0-0.8); MONO % 6.2 % (2.0-8.0); NEUTROPHILS # 6.8 10^3/uL (1.5-8.5); NEUTROPHILS % 74.7 % (36.0-66.0); PLATELET COUNT, AUTOMATED 318 10^3/uL (150-450); RED BLOOD COUNT 4.73 10^6/uL (4.30-6.10); WHITE BLOOD COUNT 9.1 10^3/uL (4.0-10.0)
[2024-03-10 06:28] LABS: BLOOD UREA NITROGEN 16 MG/DL (9-23); CARBON DIOXIDE LEVEL 26 MMOL/L (20-31); CHLORIDE LEVEL 109 MMOL/L (98-107); CREATININE FOR GFR 0.97 MG/DL (0.70-1.30); GLOMERULAR FILTRATION RATE > 60.0 (>49); GLUCOSE, FASTING 96 MG/DL (74-106); POTASSIUM SERUM 4.3 MMOL/L (3.5-5.1); SODIUM LEVEL 141 MMOL/L (136-145)
[2024-03-10] MEDS: HYDROMORPHONE HCL 0.5 MG/ 0.5 ML SYRINGE IV PRN (07:45)
[2024-03-10 08:08] VITALS: TEMP 97.9
[2024-03-10] MEDS ORDERED: LIDOCAINE 1% MDV 20ML VIAL As Ordered ONE (08:09)
[2024-03-10] MEDS ORDERED: fentaNYL 100 MCG/2 ML INJECTION As Ordered ONE (08:13)
[2024-03-10] MEDS ORDERED: MIDAZOLAM INJ 2MG/2ML VIAL As Ordered ONE (08:13)
[2024-03-10 09:00] VITALS: BP 124/74
[2024-03-10 09:15] VITALS: BP 132/71; O2SAT 97
[2024-03-10] MEDS ORDERED: CIPR-249 PO (11:46)
[2024-03-10] MEDS ORDERED: METR-265 PO (11:46)
[2024-03-10] MEDS ORDERED: OXYC1TAB23 PO (11:46)
[2024-03-10] MEDS ORDERED: PROBCAP14 PO (11:46)
== END 2024-03-10 13:42 | disposition home or self-care (01) | DRG 244 ==
LOC: M ED 09:46 → M ED INP 15:46 → M MSPAV 17:31
PROVIDERS: ADMIT General Practice; ATTEND Internal Medicine
PROC: 0W9J30Z Drainage of Pelvic Cavity with Drainage Device, Percutaneous Approach (ICD-10-PCS; principal; 2024-03-10 08:00)
DX: K57.20 Diverticulitis of large intestine with perforation and abscess without bleeding (principal); I10 Essential (primary) hypertension; F17.200 Nicotine dependence, unspecified, uncomplicated; K40.20 Bilateral inguinal hernia, without obstruction or gangrene, not specified as recurrent; Z79.899 Other long term (current) drug therapy; Z90.49 Acquired absence of other specified parts of digestive tract; Z71.6 Tobacco abuse counseling

== ENCOUNTER → 2024-03-17 | Outpatient (REF) | payer BC ==
[~2024-03-17] MED LIST changes: +IBUP200C25 PO; +IBUP200T46 PO; +OXYC1TAB23 PO; +PROBCAP14 PO
[2024-03-17 14:21] LABS: ALBUMIN 3.2 G/DL (3.2-5.2); ALKALINE PHOSPHATASE 64 U/L (46-116); ALT/SGPT 31 U/L (7.0-40); AST/SGOT 19 U/L (<34); BASO # 0.1 10^3/uL (0.0-0.2); BASO % 1.2 % (0.0-1.0); BILIRUBIN,TOTAL 0.3 MG/DL (0.3-1.2); BLOOD UREA NITROGEN 19 MG/DL (9-23); CARBON DIOXIDE LEVEL 26 MMOL/L (20-31); CHLORIDE LEVEL 107 MMOL/L (98-107); CHOLESTEROL LEVEL 130 MG/DL (<200); CHOLESTEROL RISK RATIO 3.96 (<5); CREATININE FOR GFR 0.81 MG/DL (0.70-1.30); EOS # 0.1 10^3/uL (0.0-0.5); EOS % 1.7 % (0.0-3.0); GLOMERULAR FILTRATION RATE > 60.0 (>49); GLUCOSE, FASTING 109 MG/DL (74-106); HDL CHOLESTEROL 32.8 MG/DL (>40); HEMOGLOBIN 13.6 g/dl (13.5-17.5); LDL CHOLESTEROL 44.2 MG/DL (<100); LYMPH # 1.9 10^3/uL (1.5-5.0); LYMPH % 30.2 % (24.0-44.0); MEAN CORPUSCULAR HEMOGLOBIN 29.3 pg (27.0-33.0); MEAN CORPUSCULAR HGB CONC 33.2 g/dl (32.0-36.5); MEAN CORPUSCULAR VOLUME 88.4 fl (80.0-96.0); MONO # 0.7 10^3/uL (0.0-0.8); MONO % 10.4 % (2.0-8.0); NEUTROPHILS # 3.6 10^3/uL (1.5-8.5); NEUTROPHILS % 56.2 % (36.0-66.0); NON-HDL-C 97.2 MG/DL; PLATELET COUNT, AUTOMATED 317 10^3/uL (150-450); POTASSIUM SERUM 4.1 MMOL/L (3.5-5.1); RED BLOOD COUNT 4.64 10^6/uL (4.30-6.10); SODIUM LEVEL 140 MMOL/L (136-145); TOTAL 25(OH) VITAMIN D 26.7 NG/ML (20.0-100.0); TRIGLYCERIDES LEVEL 265 MG/DL (<150); WHITE BLOOD COUNT 6.4 10^3/uL (4.0-10.0)
[2024-03-18 23:08] LABS: PSA TOTAL 2.7 ng/mL (0.0-4.0)
== END ==
LOC: M LAB REF 12:02
PROVIDERS: ATTEND Physician Assistant
DX: K57.92 Diverticulitis of intestine, part unspecified, without perforation or abscess without bleeding (principal); E83.51 Hypocalcemia; E55.9 Vitamin D deficiency, unspecified; Z13.220 Encounter for screening for lipoid disorders; Z12.5 Encounter for screening for malignant neoplasm of prostate

== ENCOUNTER 2024-05-09 23:39 | Emergency (ER) | payer BC ==
[~2024-05-09] VITALS: Ht 177.8 cm; Wt 80.2 kg
[~2024-05-09 23:39] MED LIST changes: +ONDA-282 PO; -ONDA4TAB6 PO
[2024-05-10 07:02] LABS: VENOUS BASE EXCESS -2.6 (-2.0-2.0); VENOUS HCO3 21.7 MMOL/L (23.0-27.0); VENOUS PARTIAL PRESSURE CO2 36.7 mmHg (38.0-50.0); VENOUS PARTIAL PRESSURE O2 41.3 mmHg (30.0-50.0); VENOUS PH 7.389 UNITS (7.330-7.430); VENOUS STANDARD HCO3 21.7 MMOL/L; VENOUS TOTAL CO2 22.8 MMOL/L (24.0-28.0)
[2024-05-10 07:14] LABS: BASO # 0.1 10^3/uL (0.0-0.2); BASO % 0.5 % (0.0-1.0); EOS % 0.1 % (0.0-3.0); HEMATOCRIT 48.4 % (42.0-52.0); HEMOGLOBIN 16.4 g/dl (13.5-17.5); LYMPH # 2.4 10^3/uL (1.5-5.0); LYMPH % 25.3 % (24.0-44.0); MEAN CORPUSCULAR HEMOGLOBIN 29.5 pg (27.0-33.0); MEAN CORPUSCULAR HGB CONC 33.9 g/dl (32.0-36.5); MEAN CORPUSCULAR VOLUME 87.2 fl (80.0-96.0); MONO # 0.6 10^3/uL (0.0-0.8); MONO % 6.3 % (2.0-8.0); NEUTROPHILS # 6.3 10^3/uL (1.5-8.5); NEUTROPHILS % 67.5 % (36.0-66.0); PLATELET COUNT, AUTOMATED 223 10^3/uL (150-450); RED BLOOD COUNT 5.55 10^6/uL (4.30-6.10); WHITE BLOOD COUNT 9.3 10^3/uL (4.0-10.0)
[2024-05-10 07:34] LABS: ALBUMIN 4.6 G/DL (3.2-5.2); ALKALINE PHOSPHATASE 63 U/L (46-116); ALT/SGPT 37 U/L (7.0-40); AST/SGOT 31 U/L (<34); BILIRUBIN,DIRECT 0.2 MG/DL (<0.4); BILIRUBIN,TOTAL 0.8 MG/DL (0.3-1.2); BLOOD UREA NITROGEN 13 MG/DL (9-23); CALCIUM LEVEL 9.5 MG/DL (8.3-10.6); CARBON DIOXIDE LEVEL 23 MMOL/L (20-31); CHLORIDE LEVEL 106 MMOL/L (98-107); CK-MB VALUE MASS 1.5 NG/ML (<3.6); CREATININE FOR GFR 0.77 MG/DL (0.70-1.30); GLOMERULAR FILTRATION RATE > 60.0 (>49); GLUCOSE, FASTING 112 MG/DL (74-106); POTASSIUM SERUM 4.3 MMOL/L (3.5-5.1); SODIUM LEVEL 137 MMOL/L (136-145); TOTAL PROTEIN 8.2 G/DL (5.7-8.2)
[2024-05-10 07:36] LABS: CPK CREATINE PHOSPHOKINASE 177 U/L (46-171); MB/CK RELATIVE INDEX 0.84 (< OR =4); THYROID STIMULATING HORMONE 2.533 uIU/ML (0.55-4.78)
[2024-05-10] MEDS ORDERED: ISOVUE-370 76% 100ML VIAL As Ordered ONE (07:58)
[2024-05-10] MEDS ORDERED: OMEG10002 PO (08:45)
[2024-05-10] MEDS ORDERED: PROBCAP14 PO (08:45)
[2024-05-10 08:46] LABS: CK-MB VALUE MASS 1.3 NG/ML (<3.6)
[2024-05-10 08:47] LABS: MB/CK RELATIVE INDEX 1.56 (< OR =4)
[2024-05-10] MEDS ORDERED: HOME MED LIST COMPLETE! XX SCH (08:50)
[2024-05-10] MEDS: IPRATROPIUM 0.5MG/ALBUTEROL 2.5MG INH SOL UD 3ML (DUONEB) NEB ONE (10:17)
[2024-05-10 11:01] VITALS: O2SAT 98
[2024-05-10] MEDS ORDERED: PRED20TA PO (12:07)
[2024-05-10] MEDS ORDERED: AZIT500T5 PO (12:07)
[2024-05-10 13:05] VITALS: BP 135/90; TEMP 97.8; O2SAT 96
== END 2024-05-10 13:16 | disposition home or self-care (01) ==
LOC: M ED 23:39
DX: R06.09 Other forms of dyspnea (principal); J43.9 Emphysema, unspecified; R91.8 Other nonspecific abnormal finding of lung field; K57.92 Diverticulitis of intestine, part unspecified, without perforation or abscess without bleeding; Z87.891 Personal history of nicotine dependence; Z87.19 Personal history of other diseases of the digestive system
CPT/HCPCS: 71046; 71275; 80048; 80076; 82550; 82553; 82803; 83605; 83880; 84443; 84484; 85025; 87486; 87581; 87633; 87798; 93005; 93041; 94640; 94760; 99285; Q9967

== ENCOUNTER → 2024-06-18 | Outpatient (REF) | payer BC ==
[~2024-06-18] MED LIST changes: +AZIT500T5 PO; +HYDR-3363 PO; +META0.52 PO; +OMEG10002 PO
[2024-06-18 12:58] LABS: ALBUMIN 4.5 G/DL (3.2-5.2); ALKALINE PHOSPHATASE 59 U/L (46-116); ALT/SGPT 39 U/L (7.0-40); AST/SGOT 23 U/L (<34); BILIRUBIN,TOTAL 0.4 MG/DL (0.3-1.2); BLOOD UREA NITROGEN 12 MG/DL (9-23); CALCIUM LEVEL 9.9 MG/DL (8.3-10.6); CARBON DIOXIDE LEVEL 28 MMOL/L (20-31); CHLORIDE LEVEL 106 MMOL/L (98-107); CHOLESTEROL LEVEL 225 MG/DL (<200); CHOLESTEROL RISK RATIO 5.38 (<5); CREATININE FOR GFR 0.91 MG/DL (0.70-1.30); GLOMERULAR FILTRATION RATE > 60.0 (>49); GLUCOSE, FASTING 103 MG/DL (74-106); HDL CHOLESTEROL 41.8 MG/DL (>40); LDL CHOLESTEROL 125.6 MG/DL (<100); NON-HDL-C 183.2 MG/DL; SODIUM LEVEL 137 MMOL/L (136-145); TOTAL PROTEIN 7.8 G/DL (5.7-8.2); TRIGLYCERIDES LEVEL 288 MG/DL (<150)
== END ==
LOC: M LAB REF 12:26
PROVIDERS: ATTEND Physician Assistant
DX: E78.2 Mixed hyperlipidemia (principal)

== ENCOUNTER → 2024-06-26 | Day surgery (SDC) | payer BC ==
[~2024-06-26] VITALS: Ht 177.8 cm; Wt 79.9 kg
[~2024-06-26] MED LIST changes: +LIDOCAINE 2% 100MG/5ML SDV (FOR ANES.) As Ordered ONE; +propofoL 200 MG/20 ML VIAL As Ordered ONE
[2024-06-26] MEDS: NS 1,000 ML IV ONE (07:09)
[2024-06-26 08:01] VITALS: TEMP 97.8
[2024-06-26 08:16] VITALS: BP 155/87; O2SAT 97
== END | disposition home or self-care (01) ==
LOC: M OPP 06:30
PROVIDERS: ATTEND Surgery
DX: K63.5 Polyp of colon (principal); K64.9 Unspecified hemorrhoids; K57.30 Diverticulosis of large intestine without perforation or abscess without bleeding; K57.32 Diverticulitis of large intestine without perforation or abscess without bleeding; Z87.891 Personal history of nicotine dependence; Z79.899 Other long term (current) drug therapy

== ENCOUNTER 2025-02-02 08:53 | Emergency (ER) | payer BC ==
[~2025-02-02] VITALS: Ht 157.5 cm; Wt 81.6 kg
[~2025-02-02 08:53] MED LIST changes: -DOXY-323 PO; +DOXY-441 PO; +DOXY-442 PO; -DOXY100C82 PO; -LIDOCAINE 2% 100MG/5ML SDV (FOR ANES.) As Ordered ONE; -propofoL 200 MG/20 ML VIAL As Ordered ONE
[2025-02-02 08:58] VITALS: BP 143/85; TEMP 97.8; O2SAT 99
[2025-02-02] MEDS: ACETAMINOPHEN 500 MG TAB PO ONE (10:15)
[2025-02-02] MEDS: BOOSTRIX VACCINE (TETANUS/DIPHTH/ACEL. PERTUSSIS) 0.5ML SYR IM.IMMUN ONE (10:15)
[2025-02-02] MEDS: LIDOCAINE W/EPINEPHRINE 1% 20ML VIAL SC ONE (11:05)
[2025-02-02] MEDS ORDERED: CEPH500C PO (12:00)
[2025-02-02] MEDS: BACITRACIN OINTMENT 30GM TUBE TOP ONE (12:20)
== END 2025-02-02 12:21 | disposition home or self-care (01) ==
LOC: M ED 08:53
DX: S01.81XA Laceration without foreign body of other part of head, initial encounter (principal); W01.111A Fall on same level from slipping, tripping and stumbling with subsequent striking against power tool or machine, initial encounter; Y92.009 Unspecified place in unspecified non-institutional (private) residence as the place of occurrence of the external cause; Y93.9 Activity, unspecified; Y99.9 Unspecified external cause status; K57.92 Diverticulitis of intestine, part unspecified, without perforation or abscess without bleeding; Z87.891 Personal history of nicotine dependence; Z79.899 Other long term (current) drug therapy

== ENCOUNTER → 2025-05-18 | Outpatient (REF) | payer BC ==
[~2025-05-18] MED LIST changes: +CEPH500C PO
[2025-05-18 13:13] LABS: ALT/SGPT 35.0 U/L (7.0-40); AST/SGOT 28.0 U/L (<34); CALCIUM LEVEL 9.7 MG/DL (8.3-10.6); CARBON DIOXIDE LEVEL 24.0 MMOL/L (20-31); CHLORIDE LEVEL 106.0 MMOL/L (98-107); CHOLESTEROL LEVEL 194.0 MG/DL (<200); CHOLESTEROL RISK RATIO 5.72 (<5); CREATININE FOR GFR 1.02 MG/DL (0.70-1.30); GLOMERULAR FILTRATION RATE 82.6 (>49); LDL CHOLESTEROL 110.3 MG/DL (<100); NON-HDL-C 160.1 MG/DL; POTASSIUM SERUM 4.0 MMOL/L (3.5-5.1); SODIUM LEVEL 141.0 MMOL/L (136-145); TRIGLYCERIDES LEVEL 249.0 MG/DL (<150)
[2025-05-18 13:16] LABS: FREE T4 1.19 NG/DL (0.89-1.76)
[2025-05-18 13:21] LABS: ESTIMATED AVERAGE GLUCOSE 114.0 MG/DL (60-110)
== END ==
LOC: M LAB REF 12:15
PROVIDERS: ATTEND Physician Assistant
DX: R03.0 Elevated blood-pressure reading, without diagnosis of hypertension (principal); E78.2 Mixed hyperlipidemia

== ENCOUNTER → 2025-05-25 | Outpatient (REF) | payer BC ==
[2025-05-25 13:09] LABS: MALB URINE SIEMENS 19.0 MG/L
[2025-05-25 13:11] LABS: CREATININE, URINE 185.1 MG/DL; MAU/CREAT RATIO 10.2 MCG/MG (0.0-30.0)
== END ==
LOC: M LAB REF 11:45
PROVIDERS: ATTEND Physician Assistant
DX: R03.0 Elevated blood-pressure reading, without diagnosis of hypertension (principal)

== ENCOUNTER → 2025-10-13 | Outpatient (REF) | payer BC ==
[2025-10-13 13:50] LABS: PROSTATIC SPECIFIC AG MONITOR 2.2 NG/ML (< 4.00)
[2025-10-13 13:55] LABS: CHOLESTEROL LEVEL 154.0 MG/DL (<200); CHOLESTEROL RISK RATIO 3.73 (<5); LDL CHOLESTEROL 86.0 MG/DL (<100); NON-HDL-C 112.8 MG/DL; TRIGLYCERIDES LEVEL 134.0 MG/DL (<150)
== END ==
LOC: M LAB REF 12:26
PROVIDERS: ATTEND Physician Assistant
DX: E78.2 Mixed hyperlipidemia (principal); Z12.5 Encounter for screening for malignant neoplasm of prostate